=== PATIENT | female | born 1990 | race African-American/Black ===

== ENCOUNTER 2023-09-13 07:08 | Day surgery (SDC) | payer BC ==
[2023-09-12 10:08] VITALS: BMI 34.3
[2023-09-13] MEDS ORDERED: PROPOFOL 20 ML ONE ×3 (09:42→10:09)
== END 2023-09-13 10:52 | disposition home or self-care (01) ==
LOC: CSHSDC 07:08
PROVIDERS: ATTEND Internal Medicine Gastroenterology
PROC: 0DJD8ZZ Inspection of Lower Intestinal Tract, Via Natural or Artificial Opening Endoscopic (ICD-10-PCS; principal; 2023-09-13)
DX: K62.5 Hemorrhage of anus and rectum (principal); K64.4 Residual hemorrhoidal skin tags; K64.8 Other hemorrhoids; I10 Essential (primary) hypertension; F10.90 Alcohol use, unspecified, uncomplicated; Z87.891 Personal history of nicotine dependence
CPT/HCPCS: J2704